=== PATIENT | female | born 2000 | race Hispanic/Latino ===

== ENCOUNTER 2020-06-25 06:47 | Outpatient (CLI) | payer OTHER ==
[2020-06-25 14:17] LABS: Hemoglobin 13.2 g/dL (12.0-16.0); Mean Corpuscular HGB CONC 32.4 G/DL (32.0-36.0); Mean Corpuscular Hemoglobin 30.3 PG (27.0-33.0); Mean Corpuscular Volume 93.6 fl (80.0-100.0); Mean Platelet Volume 11.2 fl (7.4-10.4); Platelet Count 286 10x3/uL (130-400); RBC Distribution Width 12.2 % (11.5-14.5); Red Blood Cell (RBC) Count 4.35 10x6/uL (3.90-5.20); White Blood Cell (WBC) Count 6.4 10x3/uL (4.5-11.0)
[2020-06-25 14:26] LABS: BHCG - Serum Negative (NEGATIVE); Pregs Control Background? CLEAR/WHITE (CLR/WHITE); Pregs Control Bar Appear? YES (CONTROL BAR)
[2020-06-26 00:33] LABS: SARS-CoV-2 MS2 Positive; SARS-CoV-2 N Gene Negative; SARS-CoV-2 S Gene Negative; SARS-CoV-2 by NAA Not Detected (NotDetected); SARS-CoV-2 orf1ab Negative
== END 2020-06-25 06:48 | disposition home or self-care (01) ==
LOC: LABBT 06:47
PROVIDERS: ATTEND Obstetrics & Gynecology
DX: Z01.812 Encounter for preprocedural laboratory examination (principal); Z20.828 Contact with and (suspected) exposure to other viral communicable diseases; N83.201 Unspecified ovarian cyst, right side
CPT/HCPCS: 84703; 85027; 87635; U0003

== ENCOUNTER 2020-06-28 09:26 | Day surgery (SDC) | payer OTHER ==
[2020-06-27 12:35] VITALS: BMI 30.2
[2020-06-28] MEDS ORDERED: Scopolamine 1.5 mg/72 hour Patch ONE (10:47)
[2020-06-28] MEDS ORDERED: Famotidine/PF 20 mg/2ml Vial ONE (10:47)
[2020-06-28] MEDS ORDERED: Gabapentin 300 MG CAP ONE (10:48)
[2020-06-28] MEDS ORDERED: CeleCOXIB 100 MG CAP ONE (10:49)
[2020-06-28] MEDS ORDERED: Glycopyrrolate 0.2 MG/ML 5 ML SYRINGE ONE (11:41)
[2020-06-28] MEDS ORDERED: PROPOFOL 200 MG/20 ML VIAL ONE (11:41)
[2020-06-28] MEDS ORDERED: Rocuronium Bromide 10 MG/ML (10ML VIAL) ONE (11:41)
[2020-06-28] MEDS ORDERED: Ondansetron PF 4 MG/2 ML Vial ONE (11:41)
[2020-06-28] MEDS ORDERED: Dexamethasone 20 MG/5 ML VIAL ONE (11:41)
[2020-06-28] MEDS ORDERED: Lidocaine 1% PF 5 ML VIAL ONE (11:41)
[2020-06-28] MEDS ORDERED: Fentanyl 100 MCG/2 ML VIAL ONE (12:01)
[2020-06-28] MEDS ORDERED: HYDROmorphone 0.5 MG/0.5 ML SYRINGE ONE (12:01)
[2020-06-28] MEDS ORDERED: Midazolam HCl 2 mg/2 ml Vial ONE ×2 (12:08)
[2020-06-28] MEDS ORDERED: Lidocaine 1% w/Epinephrine 1:100K 20 ML VIAL ONE (12:12)
[2020-06-28] MEDS ORDERED: Bupivacaine PF 0.5% 30 ML VIAL ONE (12:12)
[2020-06-28] MEDS ORDERED: Methylene Blue 50 MG/10 ML AMPUL ONE (12:13)
[2020-06-28] MEDS ORDERED: Meperidine HCl/PF 25 MG/ML VIAL ONE (13:48)
--- NOTE | 2020-06-28 21:50 | OP ---
DATE OF PROCEDURE: 06/28/2020 PREOPERATIVE DIAGNOSIS: Right adnexal mass. POSTOPERATIVE DIAGNOSIS: Right adnexal mass. PROCEDURE PERFORMED: Robotic-assisted laparoscopic right ovarian cystectomy. DELIVERY ROOM SUPERVISOR: Asya Clarke MD COMPLICATIONS: None. ANESTHESIA: GETA. ESTIMATED BLOOD LOSS: Less than 10 mL. OPERATIVE FINDINGS: 1. Enlarged right ovary with simple-appearing cyst with serous fluid. 2. Normal-appearing left ovary. 3. Normal-appearing fallopian tubes. 4. Normal-appearing uterus. DESCRIPTION OF PROCEDURE: The patient was taken back to the OR with IV fluids running. Once she was in the OR, she was placed in dorsal supine position and anesthesia was obtained. Once the patient was asleep, she was placed in low dorsal lithotomy position. A Willis catheter was placed using sterile technique, and a sponge stick was placed in the vagina after the abdomen and external genitalia were prepped and draped. The surgeons were gowned and gloved. Attention was turned to the laparoscopic portion of the case. Beginning at the patient's supraumbilical fold, local anesthesia was placed underneath the skin. A 12 mm skin incision was made with a scalpel. A Veress needle was placed through the skin incision. The abdomen was insufflated without difficulty. The Veress needle was removed and a 12 mm trocar was placed through the distended abdomen. The laparoscope was placed through this port. The patient was placed in Trendelenburg position. The above findings were noted. Next, using similar technique under direct visualization, the left and right lower quadrant 8 mm ports and the right upper quadrant 11 mm ports were placed. After the ports were placed, the robot was docked to the patient's bedside and the instruments were entered under direct visualization into the abdominal cavity. The adnexa were inspected bilaterally and intraoperative photo was taken showing the abnormal and normal anatomy. The right ovary cyst was grasped using monopolar scissors. The most superficial layer of the ovarian cyst was incised. The cyst wall was dissected away from the ovarian stroma. The cyst was incised and clear serous fluid was drained. The cyst was then grasped and gently pulled off the ovarian serosa. The cyst was removed intact. After it was decompressed and sent for pathologic review, the ovarian stroma was irrigated and dried. Any small areas of bleeding were controlled with bipolar and monopolar cautery. There was no bleeding from the edges of the ovary at the entry point to the cyst. The pelvis was copiously irrigated and dried. After the ovary was observed and no bleeding was noted, the instruments were removed from the abdomen. The counts were correct. The gas was released from the abdomen and the four trocars were removed. The supraumbilical trocar was closed at the fascial layer using Vicryl suture. All 4 skin incisions were closed with Monocryl suture and dressed with Dermabond dressing. The sponge stick was removed from the vagina and the final count was correct. The Willis catheter was removed. The patient was cleaned, dried, taken out of lithotomy position, extubated, and transferred to the recovery room in good condition. Job ID: [id number]
== END 2020-06-28 16:22 | disposition home or self-care (01) ==
LOC: SDC 09:26
PROVIDERS: ATTEND Obstetrics & Gynecology
PROC: 0UB04ZZ Excision of Right Ovary, Percutaneous Endoscopic Approach (ICD-10-PCS; principal; 2020-06-28)
DX: D27.0 Benign neoplasm of right ovary (principal); Z79.899 Other long term (current) drug therapy
CPT/HCPCS: 36415; 86850; 86900; 86901; 88307; 88313; J0690; J1100; J1170; J2175; J2250; J2405; J2704; J3010; Q9968; S0020; S0028

== ENCOUNTER 2022-08-01 08:27 | Outpatient (CLI) | payer BC | END 2022-08-01 08:28 | disposition home or self-care (01) | LOC: BICULT 08:27 | PROVIDERS: ATTEND Family Medicine | DX: N63.11 Unspecified lump in the right breast, upper outer quadrant (principal) ==

== ENCOUNTER 2024-08-19 07:55 | Outpatient (CLI) | payer BC | END 2024-08-19 07:56 | disposition home or self-care (01) | LOC: ULT 07:55 | PROVIDERS: ATTEND Advanced Practice Midwife | DX: Z15.01 Genetic susceptibility to malignant neoplasm of breast (principal); Z80.3 Family history of malignant neoplasm of breast; E28.2 Polycystic ovarian syndrome | CPT/HCPCS: 76856 ==